=== PATIENT | male | born 1955 | race Caucasian/White ===

== ENCOUNTER 2017-10-15 12:59 | Emergency (ER) | payer OTHER ==
[~2017-10-15] VITALS: Ht 172.7 cm; Wt 96.3 kg
[~2017-10-15 12:59] MED LIST: CELEBREX200 MG PO; Ecotrin PO; Feosol PO; OMEGA 3-6-91200 MG PO; PRILOSEC40 MG PO; Percocet 5/325,Endoc PO; Senokot S,Pericolace PO; THERAGRAN1 TABLET PO; Vitamin D PO; Vitamin-E PO; Zestril,Prinivil PO; Zocor PO
[2017-10-15 15:01] LABS: HEMATOCRIT 45.2 % (38.0-50.0); MCHC 33.8 G/DL (30.0-36.0); MCV 85.8 FL (86-99); MEAN PLAT.VOLUME 10.8 uM^3 (9.0-12.4); PLATELET COUNT 259 K/uL (156-360); RBC DIS.WIDTH-SD 40.3 % (39-53); RED BLOOD COUNT 5.27 M/uL (4.00-5.50); WHITE BLOOD COUNT 9.8 K/uL (4.1-10.2)
[2017-10-15 15:06] LABS: CHLORIDE 106 mEq/L (99-109); POTASSIUM 3.9 mEq/L (3.7-5.4); SODIUM 139 mEq/L (136-147)
[2017-10-15 15:08] LABS: GLUCOSE 178 mg/dL (70-99)
[2017-10-15 15:09] LABS: ANION GAP 11 MEQ/L (2-14)
[2017-10-15 15:10] LABS: TOTAL BILIRUBIN 0.5 mg/dL (0.0-1.0)
[2017-10-15 15:12] LABS: ALKALINE PHOSPHATASE 47 IU/L (3-129); GFR ESTIMATE (CALCULATED) > 59 mL/min/
[2017-10-15 15:13] LABS: UREA NITROGEN (BUN) 16 mg/dL (9-23)
[2017-10-15 15:16] LABS: TROP-I INTERPRETATION NEGATIVE; TROPONIN-I < 0.01 ng/mL (0.0-0.30)
[2017-10-15 16:29] LABS: ADD MIUA? YES; BILIRUBIN NEGATIVE; BLOOD NEGATIVE; COLOR YELLOW ((YELLOW)); GLUCOSE (STRIP) NEGATIVE; KETONES NEGATIVE; LEUKOCYTES NEGATIVE; NITRITE NEGATIVE; PROTEIN (STRIP) 30; SPECIFIC GRAVITY 1.021 (1.000-1.030); UROBILINOGEN 0.2 MG/DL (0.2-1.0)
[2017-10-15 16:56] LABS: AMORPHOUS URATES CRYSTALS 3+; BACTERIA RARE /HPF; CASTS NONE SEEN /LPF; CRYSTALS PRESENT; EPITHELIAL CELLS RARE /HPF; MUCUS RARE /LPF; RED BLOOD CELLS NONE SEEN /HPF (0-5); UCUL ADDED? NO; WHITE BLOOD CELLS RARE /HPF (0-5)
[2017-10-15] MEDS ORDERED: ANTIVERT25 MG PO (18:02)
[2017-10-15 18:13] VITALS: BP 118/90
== END 2017-10-15 18:14 | disposition home or self-care (01) ==
LOC: EME 12:59
PROVIDERS: Emergency Medicine
PROC: 0H96XZZ Drainage of Back Skin, External Approach (ICD-10-PCS; principal; 2017-10-15)
DX: R42 Dizziness and giddiness (principal); L72.3 Sebaceous cyst; R11.2 Nausea with vomiting, unspecified; I10 Essential (primary) hypertension; K21.9 Gastro-esophageal reflux disease without esophagitis; Z79.82 Long term (current) use of aspirin; Z87.891 Personal history of nicotine dependence
CPT/HCPCS: 70450; 71020; 80053; 81003; 84484; 85027; 93005; 99281; 99285; J7030